=== PATIENT | female | born 1950 | race Caucasian/White ===

== ENCOUNTER 2020-01-04 12:09 | Outpatient (CLI) | payer MEDICARE, MEDICAID | END 2020-01-04 12:10 | disposition home or self-care (01) | LOC: RT 12:09 | PROVIDERS: ATTEND Radiology Vascular & Interventional Radiology | DX: I12.0 Hypertensive chronic kidney disease with stage 5 chronic kidney disease or end stage renal disease (principal); N18.6 End stage renal disease; Z99.2 Dependence on renal dialysis | CPT/HCPCS: 93005 ==

== ENCOUNTER 2020-04-03 06:03 | Outpatient (CLI) | payer MEDICARE, MEDICAID | END 2020-04-03 06:04 | disposition critical access hospital (66) | LOC: EMS 06:03 | PROVIDERS: ATTEND Surgery | DX: R11.2 Nausea with vomiting, unspecified (principal); R10.9 Unspecified abdominal pain; R19.5 Other fecal abnormalities; Z99.2 Dependence on renal dialysis | CPT/HCPCS: A0425; A0429 ==

== ENCOUNTER 2020-04-03 06:50 | Emergency (ER) | payer MEDICARE, MEDICAID ==
[2020-04-03] MEDS ORDERED: ONDANSETRON 4 MG/2 ML VIAL IVP STA ×2 (06:55→07:28)
[2020-04-03] MEDS ORDERED: PANTOPRAZOLE 40 MG VIAL IV STA (06:56)
[2020-04-03 07:13] LABS: BASOPHILS % (AUTO) 0.3 %; EOSINOPHILS # (AUTO) 0.1 10^3/uL (0.0-0.7); EOSINOPHILS % (AUTO) 0.9 %; LYMPHOCYTES # (AUTO) 3.6 10^3/uL (1.5-3.5); LYMPHOCYTES % (AUTO) 34.2 %; MEAN CORPUSCULAR HEMOGLOBIN 33.2 pg (27.0-31.0); MEAN CORPUSCULAR HGB CONC 32.8 g/dL (32.0-36.0); MEAN PLATELET VOLUME 11.4 fL (7.9-10.8); MONOCYTES # (AUTO) 0.4 10^3/uL (0.0-1.0); MONOCYTES % (AUTO) 3.8 %; NEUTROPHILS # (AUTO) 6.4 10^3/uL (1.5-6.6); NEUTROPHILS % (AUTO) 60.4 %; PLT - PLATELET COUNT 197 10^3/uL (130-450); RED BLOOD COUNT 2.02 10^6/uL (4.20-5.40); RED CELL DISTRIBUTION WIDTH 15.6 % (12.0-15.0); WHITE BLOOD COUNT 10.6 x10^3/uL (4.8-10.8)
[2020-04-03 07:15] LABS: HGB - HEMOGLOBIN 6.7 g/dL (12.0-16.0); INR 1.1 (0.8-1.2); PT - PROTHROMBIN TIME 12.9 secs (9.9-12.6)
[2020-04-03 07:22] LABS: PARTIAL THROMBOPLASTIN TIME 29.4 secs (24.9-33.3)
[2020-04-03] MEDS ORDERED: SODIUM CHLORIDE 0.9% 250 ML IV ONE (07:28)
--- NOTE | 2020-04-03 07:37 | ED Physician Documentation ---
PD HPI GI BLEED - Stated complaint Stated Complaint: VOMITING BLOOD - Chief complaint Chief Complaint: Abd Pain - History obtained from History obtained from: Patient - Additional information Additional information: Patient comes emergency department complaining of vomiting blood this morning and feeling dizzy. Patient states that she has no history of GI bleed previously. She is not known to be on Anticoagulants. Patient states that she has had some darker stools over the last couple days, but has not noticed any bright red blood. Patient denies chest pain or shortness of breath. No abdomi nal pain. She does have a history of end-stage renal disease and does peritoneal dialysis at home. She is patient Dr. Stallworth. She states that Dr. Stallworth told her that she could take a day off of dialysis every now and it again so she decided to take yesterday off of her dialysis. Patient has not yet done her dialysis today, she usually gets it at night. Patient states she still having some degree of nausea. No fevers. No dysuria. Patient states she does still make urine. No other complaints at this time. Review of Systems Ten Systems: 10 systems reviewed and negative Constitutional: reports: Reviewed and negative Eyes: reports: Reviewed and negative Ears: reports: Reviewed and negative Nose: reports: Reviewed and negative Throat: reports: Reviewed and negative Cardiac: reports: Reviewed and negative Respiratory: reports: Reviewed and negative GI: reports: Nausea, Vomiting, Hematemesis, Bloody / black stool : reports: Reviewed and negative Skin: reports: Reviewed and negative Musculoskeletal: reports: Reviewed and negative Neurologic: reports: Reviewed and negative Psychiatric: reports: Reviewed and negative Endocrine: reports: Reviewed and negative Immunocompromised: reports: Reviewed and negative PD PAST MEDICAL HISTORY - Allergies Allergies/Adverse Reactions: Allergies Allergy/AdvReac Type Severity Reaction Status Date / Time No Known Drug Allergies Allergy Verified 04/03/20 06:57 PD ED PE NORMAL - Vitals Vital signs reviewed: Yes - General General: Alert and oriented X 3, No acute distress, Well developed/nourished - HEENT HEENT: Atraumatic, PERRL, EOMI, Moist mucous membranes - Neck Neck: Supple, no meningeal sign - Cardiac Cardiac: RRR, No murmur, Strong equal pulses - Respiratory Respiratory: No respiratory distress (Patient appears mildly uncomfortable.), Clear bilaterally - Abdomen Abdomen: Soft, Non tender, Non distended - Back Back: No CVA TTP - Derm Derm: Warm and dry, No rash, Other (Mild pallor.) - Extremities Extremities: No deformity, No edema - Neuro Neuro: Alert and oriented X 3, Other (Grossly intact.) - Psych Psych: Normal mood, Normal affect Results - Vitals Vitals: Oxygen O2 Source Room air - EKG (time done) 0702 Rate: Rate (enter#) (55) Rhythm: NSR [place]: Normal Intervals: Normal [place] QRS: Normal Ischemia: Normal ST segments, Other (Peak T waves) Compare to prior EKG: Old EKG unavailable Computer interpretation: Agree with computer - Labs Labs: Microbiology 04/03/20 09:15 Occult Blood - Final Stool Laboratory Tests 04/03/20 04/03/20 04/03/20 06:58 06:58 06:58 WBC 10.6 RBC 2.02 L Hgb 6.7 L* Hct 20.4 L MCV 101.0 H MCH 33.2 H MCHC 32.8 RDW 15.6 H Plt Count 197 MPV 11.4 H Neut # (Auto) 6.4 Lymph # (Auto) 3.6 H [place] # (Auto) 0.4 Eos # (Auto) 0.1 Baso # (Auto) 0.0 Absolute Nucleated RBC 0.04 Nucleated RBC % 0.4 PT 12.9 H INR 1.1 APTT 29.4 Sodium 137 Potassium 6.4 H* Chloride 95 L Carbon Dioxide 15 L Anion Gap 27.0 H BUN 135 H* Creatinine 12.2 H* Estimated GFR (MDRD) 3 L Glucose 180 H Lactic Acid Calcium 7.6 L Total Bilirubin 0.6 Direct Bilirubin < 0.1 L AST 16 ALT 11 Alkaline Phosphatase 50 Total Creatine Kinase 49 Troponin I High Sens Total Protein 5.9 L Albumin 3.0 L Globulin 2.9 Lipase 46 Blood Type Blood Type Recheck Antibody Screen Crossmatch IS Only 04/03/20 04/03/20 04/03/20 06:58 06:58 06:58 WBC RBC Hgb Hct MCV MCH MCHC RDW Plt Count MPV Neut # (Auto) Lymph # (Auto) [place] # (Auto) Eos # (Auto) Baso # (Auto) Absolute Nucleated RBC Nucleated RBC % PT INR APTT Sodium Potassium Chloride Carbon Dioxide Anion Gap BUN Creatinine Estimated GFR (MDRD) Glucose Lactic Acid 3.8 H* Calcium Total Bilirubin Direct Bilirubin AST ALT Alkaline Phosphatase Total Creatine Kinase Troponin I High Sens 14.8 Total Protein Albumin Globulin Lipase Blood Type O POSITIVE Blood Type Recheck Antibody Screen NEGATIVE Crossmatch IS Only See Detail 04/03/20 04/03/20 07:45 09:39 WBC RBC Hgb Hct MCV MCH MCHC RDW Plt Count MPV Neut # (Auto) Lymph # (Auto) [place] # (Auto) Eos # (Auto) Baso # (Auto) Absolute Nucleated RBC Nucleated RBC % PT INR APTT Sodium 139 Potassium 5.6 H Chloride 97 L Carbon Dioxide 16 L Anion Gap 26.0 H BUN 134 H* Creatinine 12.3 H* Estimated GFR (MDRD) 3 L Glucose 200 H Lactic Acid Calcium 8.5 Total Bilirubin Direct Bilirubin AST ALT Alkaline Phosphatase Total Creatine Kinase Troponin I High Sens Total Protein Albumin Globulin Lipase Blood Type Blood Type Recheck O POSITIVE Antibody Screen Crossmatch IS Only - Rads (name of study) Chest x-ray Radiology: Final report received, EMP read indepedently, See rad report (NG tube in stomach; left subclavian central line extending to caval atrial junction.) PD MEDICAL DECISION MAKING - ED course Complexity details: reviewed old records, reviewed results, re-evaluated patient, considered differential, d/w patient ED course: The patient was orthostatically hypotensive in the emergency department, withA drop of blood pressure from normal to 80s/60s with sitting up, with a concurrent rise in her pulse from the 70s to around 110. I was concerned about this, and given the patient's likely upper GI bleeding and her history of end-stage renal disease. I was also concerned that she had skipped her dialysis yesterday and did not want to fluid overload her.. The patient was given a 250 cc bolus point and normal saline in the emergency department, and was worked up with labs and EKG, as well as chest x-ray. The patient was found to have a hemoglobin of 6.7, as well as potassium of 6.4 with peaking of her T waves on EKG, but no widening of the QRS complexes. Patient was given IV calcium chloride, as well as 8 units of IV insulin and an amp of D50. I spoke with Dr. Lugo, who was the on-call hospitalist at [place] [facility], and she stated she would not take the patient until the potassium was less than 6 and the patient was no longer displaying postural hypotension. I did discuss with the hospitalist that I did not feel that this was reasonable, as the patient did not have widening of her QRS complexes and had been stable when supine, and I felt she needed dialysis more than anything. I had also ordered a blood transfusion for the patient which was eminently pending. The hospitalist was unmoved, and so I spoke with Dr. Stallworth, who agreed that the patient should be transferred to [facility] as soon as possible to receive her dialysis. He recommended that I speak with the on-call wastewater process engineer at [facility] which I did. Dr. Vogt, the wastewater process engineer, did not feel that the patient needed to be in the ICU, because she felt that as soon as the patient was dialyzed, her potassium would be fine. As such, she did not want to accept the patient in transfer to the wastewater process engineer service at [facility]. Since we had already drawn a repeat potassium, she stated that she would like to see what the repeat was, and then try to have Dr. Lugo take the patient. The repeat potassium came back at 5.6. I had placed a subclavian central line on the patient's left side. NG tube was placed and did put out approximately 300 cc of coffee-ground material. The patient received 2 units of packed red cells, as well as a requested 1 L bolus by the wastewater process engineer. Although this patient's disposition was decided within an hour of her arrival, and I spoke with the aunt the hospitalist at that time, the patient did not end up being accepted for transfer ultimately by [facility] until nearly 6 hours later. The patient was finally transferred around that time, at which she had stabilized significantly. - Critical Care Time(min): 60 Comments: Critical care time was necessary because upon my evaluation patient had a high probability of imminent or life-threatening deterioration, due to hyperkalemia, upper GI bleed and hypovolemic shock. Time Includes: Direct patient care, Review records, See progress note Data interpretation: Labs, Pulse ox, CXR, Prior EKG, Cardiac output, See progress note Procedures excluded from critical care time: Central IV Departure - Departure Disposition: 02 Transfer Acute Care Hosp Clinical Impression: Upper GI bleeding, Hypovolemic shock, Symptomatic anemia, Hyperkalemia, End stage renal disease Discharge Date/Time: 04/03/20 13:21
[2020-04-03] MEDS ORDERED: ONDANSETRON 4 MG/2 ML VIAL ONE (07:40)
[2020-04-03] MEDS ORDERED: CALCIUM CHLORIDE ABBOJECT 1000MG/10 ML SYRINGE IVP STA (08:00)
[2020-04-03] MEDS ORDERED: INSULIN REGULAR HUMAN 100 UNIT/1 ML 10 ML MDV IVP STA (08:00)
[2020-04-03] MEDS ORDERED: DEXTROSE 50% ABBOJECT 25 GM/50 ML SYRINGE IVP STA (08:00)
[2020-04-03 08:09] LABS: ALKALINE PHOSPHATASE 50 IU/L (42-121); ALT ALANINE AMINOTRANSFERASE 11 IU/L (10-60); AST ASPARTATE AMINOTRANSFERASE 16 IU/L (10-42); BILIRUBIN,TOTAL 0.6 mg/dL (0.2-1.0); CALCIUM 7.6 mg/dL (8.5-10.3); CARBON DIOXIDE - CO2 15 mmol/L (21-32); CHLORIDE 95 mmol/L (101-111); CK- CREATINE KINASE 49 IU/L (22-269); GLUCOSE 180 mg/dL (70-100); LIPASE 46 U/L (22-51); SODIUM 137 mmol/L (135-145); TOTAL PROTEIN 5.9 g/dL (6.7-8.2)
[2020-04-03 08:10] LABS: BILIRUBIN,DIRECT < 0.1 mg/dL (0.1-0.5); CREATININE 12.2 mg/dL (0.4-1.0)
[2020-04-03 08:11] LABS: BUN - BLOOD UREA NITROGEN 135 mg/dL (6-20)
[2020-04-03] MEDS ORDERED: ATROPINE ABBOJECT 0.5 MG/5 ML SYRINGE IVP STA (08:45)
[2020-04-03] MEDS ORDERED: ATROPINE ABBOJECT 1 MG/10 ML SYRINGE IVP STA (08:47)
[2020-04-03] MEDS ORDERED: LIDOCAINE 1% 2 ML VIAL ONE (09:16)
[2020-04-03] MEDS ORDERED: LIDOCAINE 1%-EPI 1:100000 20 ML MDV ONE (09:24)
[2020-04-03 10:46] LABS: CALCIUM 8.5 mg/dL (8.5-10.3)
[2020-04-03 10:49] LABS: CREATININE 12.3 mg/dL (0.4-1.0)
--- NOTE | 2020-04-03 11:21 | XRAY Report ---
Reason: NG AND CENTRAL LINE PLACEMENT Procedure Date: 04/03/2020 Accession Number: [id number] / [id number] Procedure: XR - Chest for Line Placement CPT Code: Final Report FULL RESULT: EXAM: CHEST RADIOGRAPHY EXAM DATE: 04/03/2020 10:47 AM. CLINICAL HISTORY: NG and central line placement. COMPARISON: None. TECHNIQUE: 1 view. FINDINGS: Lungs/Pleura: No focal opacities evident. No pleural effusion. No pneumothorax. Mediastinum: Within exam limitations, the cardiomediastinal contour is normal. Other: NG tube in the stomach. Left-sided subclavian line tip at the cavoatrial junction. IMPRESSION: 1. NG tube in the stomach. 2. Left-sided subclavian line tip at the cavoatrial junction. 3. Otherwise stable AP portable chest. [facility]
[2020-04-03 13:21] VITALS: BP 144/78
== END 2020-04-03 13:21 | disposition short-term general hospital (02) ==
LOC: EDUNIT# → ED 06:50
DX: K92.0 Hematemesis (principal); R57.1 Hypovolemic shock; D64.9 Anemia, unspecified; E87.5 Hyperkalemia; N18.6 End stage renal disease; Z99.2 Dependence on renal dialysis
CPT/HCPCS: 36415; 36430; 36556; 80048; 80076; 82272; 82550; 83605; 83690; 84484; 85025; 85610; 85730; 86850; 86900; 86901; 86920; 93005; 96374; 96375; 99285; 99291; J1815; P9016; 71045

== ENCOUNTER 2020-04-03 13:21 | Outpatient (CLI) | payer MEDICARE, MEDICAID | END 2020-04-03 13:22 | disposition short-term general hospital (02) | LOC: EMS 13:21 | PROVIDERS: ATTEND Surgery | DX: K92.0 Hematemesis (principal); R57.9 Shock, unspecified; E87.5 Hyperkalemia; R00.1 Bradycardia, unspecified | CPT/HCPCS: A0425; A0428 ==